=== PATIENT | female | born 1950 | race Caucasian/White ===

== ENCOUNTER 2017-03-07 15:25 | Emergency (ER) | payer MEDICARE, OTHER ==
[~2017-03-07] VITALS: Ht 149.9 cm; Wt 112.8 kg
[2017-03-07] MEDS ORDERED: BREO ELLIPTA1 INH IN (16:04)
[2017-03-07] MEDS ORDERED: ALLERGY RE50 MCG/ACT IN (16:05)
[2017-03-07] MEDS ORDERED: MOTRIN800 MG PO (16:06)
[2017-03-07] MEDS ORDERED: IPRATROPIU0.5 MG/3 M IN (16:06)
[2017-03-07] MEDS ORDERED: LISINOPRIL40 MG PO (16:07)
[2017-03-07] MEDS ORDERED: MONTELUKAST SOD10 MG PO (16:07)
[2017-03-07] MEDS ORDERED: NEXIUM40 M1 PO (16:07)
[2017-03-07] MEDS ORDERED: PRAVASTATIN SOD20 MG PO (16:08)
[2017-03-07] MEDS ORDERED: PROAIR HFA108 MCG/AC IN (16:15)
[2017-03-07] MEDS ORDERED: SPIRIVA HANDIH18 MCG IN (16:16)
[2017-03-07] MEDS ORDERED: MULTI VIT PO (16:16)
[2017-03-07] MEDS ORDERED: D31000 UNIT PO (16:17)
[2017-03-07] MEDS ORDERED: FLEXERIL PO (17:05)
[2017-03-07] MEDS ORDERED: ULTRAM50 M1 PO (17:05)
[2017-03-07 17:15] VITALS: BP 141/74
== END 2017-03-07 17:15 | disposition home or self-care (01) ==
LOC: ED 15:25
DX: S39.012A Strain of muscle, fascia and tendon of lower back, initial encounter (principal); S23.3XXA Sprain of ligaments of thoracic spine, initial encounter; M47.817 Spondylosis without myelopathy or radiculopathy, lumbosacral region; X50.3XXA Overexertion from repetitive movements, initial encounter; Y93.I9 Activity, other involving external motion; Y92.810 Car as the place of occurrence of the external cause; Y92.411 Interstate highway as the place of occurrence of the external cause

== ENCOUNTER 2017-05-23 10:30 | Emergency (ER) | payer MEDICARE, OTHER ==
[~2017-05-23] VITALS: Ht 149.9 cm; Wt 95.0 kg
[~2017-05-23 10:30] MED LIST: ALLERGY RE50 MCG/ACT IN; BREO ELLIPTA1 INH IN; D31000 UNIT PO; FLEXERIL PO; IPRATROPIU0.5 MG/3 M IN; LISINOPRIL40 MG PO; MONTELUKAST SOD10 MG PO; MOTRIN800 MG PO; MULTI VIT PO; NEXIUM40 M1 PO; PRAVASTATIN SOD20 MG PO; PROAIR HFA108 MCG/AC IN; SPIRIVA HANDIH18 MCG IN; ULTRAM50 M1 PO
[2017-05-23] MEDS ORDERED: OCEAN NASAL0.65 % (11:08)
[2017-05-23] MEDS ORDERED: AFRIN 12 HOUR0.05 % (11:08)
[2017-05-23 11:21] VITALS: BP 162/79
[2017-05-23] MEDS ORDERED: CLONIDINE0.1 MG PO (11:24)
== END 2017-05-23 11:45 | disposition home or self-care (01) ==
LOC: ED 10:30
DX: R04.0 Epistaxis (principal); I10 Essential (primary) hypertension

== ENCOUNTER → 2018-10-20 | Outpatient (REF) | payer MEDICARE, OTHER ==
[~2018-10-20] MED LIST changes: +AFRIN 12 HOUR0.05 %; +CLARITIN RDT10 MG PO; +CLONIDINE0.1 MG PO; +HYDROCHLOROT12.5 MG PO; +LOSARTAN POTASS50 MG PO; +OCEAN NASAL0.65 %; +PANTOPRAZOLE SO40 MG PO; +STIOLTO RESPIMA1 AER IN
[2018-10-20 11:01] LABS: URINE BILIRUBIN - DIPSTICK NEGATIVE (NEGATIVE); URINE BLOOD DIPSTICK NEGATIVE (NEGATIVE); URINE COLOR YELLOW; URINE GLUCOSE - DIPSTICK NEGATIVE (NEGATIVE); URINE KETONE NEGATIVE (NEGATIVE); URINE LEUK ESTERASE TRACE (NEGATIVE); URINE NITRITE - DIPSTICK NEGATIVE (Negative); URINE PROTEIN - DIPSTICK NEGATIVE (NEG-TRACE); URINE UROBILINOGEN - DIPSTICK 0.2 E.U./dL (0.2)
== END | disposition home or self-care (01) ==
LOC: LABSPEC 10:40
PROVIDERS: ATTEND Nurse Practitioner Family
DX: R30.0 Dysuria (principal)

== ENCOUNTER 2019-03-08 14:35 | Emergency (ER) | payer MEDICARE, OTHER ==
[~2019-03-08] VITALS: Ht 149.9 cm; Wt 100.0 kg
[2019-03-08] MEDS ORDERED: TRELEGY ELLIPTA1 AER PO (15:23)
[2019-03-08] MEDS ORDERED: HYDROCHLOROT12.5 M1 PO (15:24)
[2019-03-08] MEDS ORDERED: NAPROSYN500 MG PO (16:38)
[2019-03-08] MEDS ORDERED: FLEXERIL5 MG PO (16:38)
[2019-03-08 16:50] VITALS: BP 121/66
== END 2019-03-08 16:50 | disposition home or self-care (01) ==
LOC: ED 14:35
DX: M19.012 Primary osteoarthritis, left shoulder (principal); I10 Essential (primary) hypertension

== ENCOUNTER 2019-08-24 09:02 | Inpatient (IN) | payer MEDICARE, OTHER ==
[~2019-08-24] VITALS: Ht 147.3 cm; Wt 108.0 kg
[~2019-08-24 09:02] MED LIST changes: +FLEXERIL5 MG PO; +HYDROCHLOROT12.5 M1 PO; +NAPROSYN500 MG PO; +TRELEGY ELLIPTA1 AER PO
--- NOTE | 2019-08-24 09:18 | NUR ---
PT TO ROOM VIA WHEELCHAIR.
--- NOTE | 2019-08-24 10:00 | NUR ---
PT RESTING ON STRETCHER; NO S/S OF DISTRESS NOTED; O2 NC IN PLACE; VSS; WILL CONTIUNE TO MONITOR
[2019-08-24 10:09] LABS: HEMATOCRIT 41.8 % (37.0-47.0); HEMOGLOBIN 13.9 g/dl (12.0-16.0); IMMATURE GRANULOCYTES 0.6 % (0.0-5.0); MEAN CELL VOLUME 91.3 fL CALC (80.0-100.0); MEAN CORPUSCULAR HGB 30.3 pG CALC (26.0-32.0); MEAN CORPUSCULAR HGB CONC 33.3 g/L CALC (32.0-36.0); NEUT# 14.37 thou/uL (2.00-7.15); RED BLOOD COUNT 4.58 mill/uL (4.20-5.60); RED CELL DISTRI WIDTH 12.6 % (11.5-15.5)
[2019-08-24 10:28] LABS: ALBUMIN 3.9 g/dL (3.2-5.0); ANION GAP 13 (6-22 (CALC)); BILIRUBIN, TOTAL 1.8 mg/dL (0.0-1.4); BUN 15 mg/dL (8-23); BUN/CREATININE RATIO 24 (12-20 (CALC)); CARBON DIOXIDE 25 mmol/l (22-30); CHLORIDE 100 mmol/l (95-108); CREATININE 0.6 mg/dL (0.5-1.0); GFR > 60 ML/MIN (>=60 (CALC)); GFR FOR AFR.AMER. > 60 ML/MIN (>=60 (CALC)); POTASSIUM 3.9 mmol/l (3.5-5.1); SODIUM 134 mmol/l (137-146); TOTAL PROTEIN 6.8 g/dL (6.3-8.2)
[2019-08-24 10:29] LABS: ALKALINE PHOSPHATASE 152 u/l (38-126); SGOT/AST 38 u/l (9-36)
--- NOTE | 2019-08-24 11:00 | NUR ---
PT RESTING ON STRETHCER; NO S/S OF DISTRESS NOTED; PT UPDATED ON CONTINUED WAIT TIME; VSS; WILL CONTINUE TO MONITOR
--- NOTE | 2019-08-24 12:00 | NUR ---
PT ASSISTED TO BR AT THIS TIME; AM WITH STEADY GAIT NOTED; WILL CONTINUE TO MONITOR
--- NOTE | 2019-08-24 12:48 | NUR ---
PT ARRIVED TO MED/SURG ROOM 284 IN STABLE CONDITION VIA WHEELCHAIR ACCOMPANIED BY SPOUSE AND WOO HYLTON;PT AMBULATED WITH A STEADY GAIT TO STANDING SCALE AND BEDSIDE;WT AND VS OBTAINED BY FRANK BROTHERS;PT A&O X3,ORIENTED TO ROOM AND CALL LIGHT SYSTEM;PT REPORTS "FLU LIKE SYMPTOMS" STARTING Friday08/22/19 ACCOMPANIED WITH FEVERS AND COUGH;PT REPORTS HEADACHE PAIN RATING 6/10 ON THE PAIN SCALE AND REQUESTS PAIN MEDICATION,KATHERIN ESTEVEZ NOTIFIED OF REQUEST;ASSESSMENT COMPLETED;RESPIRATIONS EVEN AND UNLABORED,SHALLOW ON O2 @ 2L VIA NC;PT IS NOT HOME OXYGEN DEPENDENT;COARSE LUNG SOUNDS ACCOMPANIED BY PRODUCTIVE COUGH, SPUTUM NOT VISUALIZED AT THIS TIME;ABDOMEN DISTENDED/SOFT ON PALPATION AND ACTIVE IN ALL 4 QUADRANTS,LAST BM 08/24/19;WEAK PEDAL PULSES;SKIN INTACT;TELE MONITORING IN PLACE;#20G TO LAC FLUSHED AND PATENT,NS TO BE STARTED @ 80ML/HR PER ORDER;ALLERGY BAND APPLIED;PT DENIES ANY ADDITIONAL NEEDS AT THIS TIME;MEAL TRAY PROVIDED;ENCOURAGED TO CALL FOR ASSISTANCE IF NEEDED;FALL PRECAUTIONS IN PLACE WITH BED IN THE LOWEST POSITION AND CALL LIGHT IN REACH;WILL CONTINUE TO MONITOR
--- NOTE | 2019-08-24 12:51 | NUR ---
Admission Note Report Given to: ROSITA PLASCENCIA Transported by: X Wheelchair Stretcher Transported with: X Nurse Transporter X Patent IV X O2 X Cigar Tobacco Processing Supervisor
[2019-08-24 12:58] VITALS: BP 153/76
--- NOTE | 2019-08-24 13:35 | NUR ---
PT MEDICATED WITH PRN TYLENOL 650MG PO FOR HEADACHE PAIN RATING 6/10 ON THE PAIN SCALE,WILL MONITOR FOR EFFECTIVENESS
--- NOTE | 2019-08-24 15:06 | NUR ---
PT REPORTS THAT TYLENOL WAS UNEFFECTIVE TOWARDS HEADACHE PAIN,KATHERIN SOLOMON NOTIFIED.
[2019-08-24 16:08] VITALS: BP 155/70
--- NOTE | 2019-08-24 16:15 | NUR ---
PT RESTING IN SEMI FOWLERS POSITION WITH VISITORS AT BEDSIDE;RESPIRATIONS EVEN AND UNLABORED ON O2 @ 2L VIA NC;PT CONTINUES TO REPORT HEADCAHE PAIN,HERB,KATHERIN AT BEDSIDE;;IV FLUIDS INFUSING TO LAC WITH EASE PER ORDER;TELE MONITORING IN PLACE;PT ENCOURAGED TO CALL FOR ASSISTANCE IF NEEDED;CALL LIGHT IN REACH;WILL CONTINUE TO MONITOR
--- NOTE | 2019-08-24 17:50 | NUR ---
PT MEDICATED WITH PRN MOTRIN 600MG PO FOR HEADACHE RATING 5/10 ON THE PAIN SCALE,WILL CONTINUE TO MONITOR FOR EFFECTIVENESS
--- NOTE | 2019-08-24 18:42 | NUR ---
PT REPORTS THAT PRN MOTRIN WAS UNEFFECTIVE TOWARDS HEADACHE PAIN,JYOTI ESTEVEZRP NOTIFIED.
[2019-08-24 20:19] VITALS: BP 147/80
--- NOTE | 2019-08-24 21:30 | NUR ---
PATIENT RESTING IN BED WITH HOB ELEVATED AND O2 VIA NASAL CANNULA IN PLACE. AT BEDSIDE. PATIENT WITH TELE MONITOR IN PLACE. IV SITE TO AC INTACT WITH IVF NS PATENT ANDIFUSING AT 80CC/HR. PATIENT IS VOIDING QS YELLOW URINEIN BR. PATIENT C/O THROBBING HEADACHE. MEDICAED WITH LORTAB 5/325MG PO FOR H/A. SAFETY PREAUTIONS REINFORCED. CALL LIGHT IN REACH. WILL CONT TO MONITOR.
[2019-08-25] VITALS (8 sets, daily range): BP systolic 125–189; BP diastolic 57–86
--- NOTE | 2019-08-25 | NUR ---
PATIENT RESTING IN BED WATCHING TV-STATES THAT HE HEADACHE IS BETTER AT 2/10 ON PAIN SCALE. O2 REMAINS IN PLACE. TELE MONITOR IN PLACE. IVF NS PATENT AND INFUSING AT 80CC/HR. SITE REMAINS HEALTHY. SAFETY PRECAUTIONS REINFORCED. CALL LIGHT IN REACH. WILL CONT TO MONITOR.
--- NOTE | 2019-08-25 03:51 | NUR ---
PATIENT APPEARS SLEEPING IN BED WITH O2 VIA NASAL CANNULA IN PLACE. APPEARS SLEEPING WITH EYES CLOSED. RESP ARE EVEN AND UNLABORED. TELE MONITOR IN PLACE. IVF PATENT ANDINFUSING AT 80CC/HR VIA LAC SITE. CALL LIGHT IN REACH. WILL CON TO MONITOR.
[2019-08-25 06:01] LABS: HEMATOCRIT 38.9 % (37.0-47.0); HEMOGLOBIN 13.1 g/dl (12.0-16.0); MEAN CELL VOLUME 90.5 fL CALC (80.0-100.0); MEAN CORPUSCULAR HGB 30.5 pG CALC (26.0-32.0); MEAN CORPUSCULAR HGB CONC 33.7 g/L CALC (32.0-36.0); NEUT# 6.39 thou/uL (2.00-7.15); RED BLOOD COUNT 4.3 mill/uL (4.20-5.60); RED CELL DISTRI WIDTH 12.3 % (11.5-15.5)
[2019-08-25 06:25] LABS: ANION GAP 16 (6-22 (CALC)); BUN 16 mg/dL (8-23); BUN/CREATININE RATIO 26 (12-20 (CALC)); CHLORIDE 102 mmol/l (95-108); CREATININE 0.6 mg/dL (0.5-1.0); GFR > 60 ML/MIN (>=60 (CALC)); GFR FOR AFR.AMER. > 60 ML/MIN (>=60 (CALC)); POTASSIUM 3.9 mmol/l (3.5-5.1); SODIUM 133 mmol/l (137-146)
[2019-08-25 06:26] LABS: CARBON DIOXIDE 19 mmol/l (22-30)
--- NOTE | 2019-08-25 08:00 | NUR ---
ASSESSMENT DONE. TELE IN PLACE. PT IS A&O X3. O2 AT 2L VIA NC. IVF INFUSING WELL. PT DENIES PAIN OR NEEDS AT THIS TIME. CALL LIGHT IN REACH.
--- NOTE | 2019-08-25 12:05 | NUR ---
MEDICATED PT WITH LORTAB FOR HEADACE. MANOJ ZHOU AT BEDSIDE. PT FACE IS FLUSH/REDNESS. CHECK PT TEMP 99.1. NOTIFIED WINNIE RE: PT VS. IN ROOM. CALL LIGHT IN REACH.
--- NOTE | 2019-08-25 14:30 | NUR ---
PT CALLED STATED THAT SHE HAS SOB,HOT AND NAUSEA. PT FACE IS FLUSH/REDNESS STOP THE ZITHROMAX. VS OBTAIN. NOTIFIED WINNIE PIZARRO: PT CONCERNS AND VS.
--- NOTE | 2019-08-25 16:03 | NUR ---
PT IS RESTING IN BED. PT STATED SHE FEELS A LITTLE BIT BETTER. PT FACE STILL FLUSH. PT DENIES PAIN. IN ROOM. CALL LIGHT IN REACH.
--- NOTE | 2019-08-25 20:41 | NUR ---
PATIENT SITTING ROOM PLAYING WITH CELL PHONE. PATIENT ALERT AND ORIENTED X 4. PATIENT HAS NO COMPLAINTS. PATIENT LUNGS ARE CLEAR. PATIENT HAS OCCASSIONALLY PRODUCTIVE THICK GREENISH SPUTUM COUGH. 02 @2L N.C. PATIENT LAST BOWEL MOVEMENT WAS YESTERDAY. PATIENT EDUCATED ON USING CALLING RAMOS FOR ASSISTANCE.
[2019-08-26] VITALS (7 sets, daily range): BP systolic 136–172; BP diastolic 78–89
[2019-08-26 05:26] LABS: HEMATOCRIT 38.9 % (37.0-47.0); HEMOGLOBIN 12.7 g/dl (12.0-16.0); IMMATURE GRANULOCYTES 2.3 % (0.0-5.0); MEAN CELL VOLUME 92.4 fL CALC (80.0-100.0); MEAN CORPUSCULAR HGB 30.2 pG CALC (26.0-32.0); MEAN CORPUSCULAR HGB CONC 32.6 g/L CALC (32.0-36.0); NEUT# 7.92 thou/uL (2.00-7.15); RED BLOOD COUNT 4.21 mill/uL (4.20-5.60); RED CELL DISTRI WIDTH 12.7 % (11.5-15.5)
[2019-08-26 05:51] LABS: ANION GAP 14 (6-22 (CALC)); BUN 19 mg/dL (8-23); BUN/CREATININE RATIO 33 (12-20 (CALC)); CHLORIDE 105 mmol/l (95-108); CREATININE 0.6 mg/dL (0.5-1.0); GFR > 60 ML/MIN (>=60 (CALC)); GFR FOR AFR.AMER. > 60 ML/MIN (>=60 (CALC)); MAGNESIUM 2.2 mg/dL (1.6-2.3); SODIUM 138 mmol/l (137-146)
[2019-08-26 06:11] LABS: CARBON DIOXIDE 23 mmol/l (22-30)
--- NOTE | 2019-08-26 07:23 | NUR ---
PATIENT SLEPT THROUGHOUT SHIFT. LUNGS ARE CLEAR. PATIENT HAS NO COMPLAINTS.
--- NOTE | 2019-08-26 08:00 | NUR ---
PATIENT RESTING IN BED AT THIS TIME-AWAKE ALERT AND ORIENTEDX3 WITH [address]UL[address]. PATIENT STILL WITH PRODUCTIVE COUGH-BROWN SECREATIONS. PATIENT WITH IV SITE TO LEFT AC INTACT AND REMAINS HEALTHY.PATIENT UP TO BR-VOIDING QS YELLOW URINE. SAFETY PRECAUTIONS REINFORCED. CALL LIGHT IN REACH. WILL CONT TO MONITOR.
--- NOTE | 2019-08-26 13:45 | NUR ---
PATIENT TO CT FOR CT OF [facility] VIA WHEELCHAIR WITH VOLUNTEER IN ATTENDANCE.
--- NOTE | 2019-08-26 17:11 | NUR ---
PATIENT RESTING IN BED AT THIS TIME. SOB WITH EXHERSION. PATIENT VOIDING QS YELLOW URINE AND STATES THAT SHE DID HAVE A BM THIS AFTERNOON. SOLU-MEDROL GIVEN ORDERED VCIA LEFT AC SITE. CALL LIGHT IN REACH. WILL CONT TO MONITOR.
--- NOTE | 2019-08-26 19:25 | NUR ---
REPORT FROM JAVIER BERKOWITZ. PT SITTING UP IN BED. NO APPARENT DISTRESS NOTED. SEVERAL VISITORS IN ROOM. PT DENIES ANY CURRENT WANTS OR NEEDS. CALL LIGHT WITHIN. WILL CONTINUE TO MONITOR.
--- NOTE | 2019-08-26 23:15 | NUR ---
PT RESTING IN BED WITH EYES CLOSED. NO APPARENT DISTRESS NOTED. CALL LIGHT WITHIN REACH. WILL CONTINUE TO MONITOR.
--- NOTE | 2019-08-27 03:21 | NUR ---
FRESH ICE WATER AND FAN PROVIDED UPON REQUEST. PT DENIES ANY PAIN OR DISCOMFORT. NO APPARENT DISTRESS NOTED. CALL LIGHT WITHIN REACH. WILL CONTINUE TO MONITOR.
[2019-08-27 03:30] VITALS: BP 166/82
[2019-08-27 07:18] VITALS: BP 145/78
--- NOTE | 2019-08-27 07:21 | NUR ---
PT RESTING QUIETLY IN BED. NO RESP. DISTRESS NOTED. ASSESSMENT COMPLETED. NO COMPLAINTS VOICED. WILL CONTINUE TO MONITOR CONDITION. CALL LIGHT WITHIN REACH.
--- NOTE | 2019-08-27 11:06 | NUR ---
VISITORS AT BEDSIDE VISITING. PT TENDS TO COUGH AFTER TAKING FOR A PERIOD OF TIME. SLIGHT DISTRESS AFTER THE COUGH, HOWEVER ABLE TO CATCH BREATHE. WILL CONTINUE TO MONITOR. CALL LIGHT REMAINS WITHIN REACH.
--- NOTE | 2019-08-27 12:00 | NUR ---
PT CONTINUES TO REST QUIETLY IN BED. NO RESP. DISTRESS NOTED. NO CHANGE IN ASSESSMENT. WILL CONTINUE TO MONITOR CONDITION. CALL LIGHT WITHIN REACH.
[2019-08-27 12:07] VITALS: BP 178/74
[2019-08-27 16:00] VITALS: BP 158/71
--- NOTE | 2019-08-27 16:17 | NUR ---
PT CONTINUES TO REST QUIETLY. NO RESP. DISTRESS NOTED. NO COMPLAINTS VOICED. NO CHANGE IN ASSESSMENT. CALL LIGHT WITHIN REACH.
[2019-08-27 18:45] VITALS: BP 158/84
--- NOTE | 2019-08-27 20:31 | NUR ---
REPORT FROM HUE BECKER. PT SITTING UP IN BED. NO APPARENT DISTRESS NOTED. VISITORS PRESENT IN ROOM. PT DENIES ANY CURRENT WANTS OR NEEDS. CALL LIGHT WITHIN. WILL CONTINUE TO MONITOR.
[2019-08-27 23:52] VITALS: BP 152/82
--- NOTE | 2019-08-28 00:01 | NUR ---
PT SITTING UP IN BED. NO APPARENT DISTRESS NOTED. FRESH ICE WATER PROVIDED AT THIS TIME. DENIES ANY OTHER WANTS OR NEEDS. CALL LIGHT WITHIN REACH. WILL CONTINUE TO MONITOR.
--- NOTE | 2019-08-28 03:45 | NUR ---
PT RESTING IN BED WITH EYES CLOSED. NO APPARENT DISTRESS NOTED. CALL LIGHT WITHIN REACH. WILL CONTINUE TO MONITOR.
[2019-08-28 04:38] VITALS: BP 144/82
[2019-08-28 08:20] VITALS: BP 159/74
--- NOTE | 2019-08-28 08:20 | NUR ---
ASSESSMENT IS COMPLTED: IV SITE IS FREE FROM REDNESS OR EDEMA. HR IS REG,PULSES ARE STRONG X4, ABD IS SOFT WITH ACTIV EBS . BREATH SOUNDS ARE COARSE. O2 @ 2LITERS WITH NC. CONTINUE TO OBSERVE AND MONITOR.
--- NOTE | 2019-08-28 11:50 | NUR ---
CHANGED IV SITE TO THE LH WITH #22 1 STICK.REMOVED THE LAC # 20 DUE TO BEEPING AND TIME TO CHANGE, CATHTER INTACT.
--- NOTE | 2019-08-28 12:30 | NUR ---
PT IS VISITING WITH SPOUSE. NO DISTRESS NOTED. IV SITE IS FREE FROM REDNESS OR EDEMA.
[2019-08-28 15:09] VITALS: BP 153/66
--- NOTE | 2019-08-28 16:20 | NUR ---
PT IS RELAXING IN BED WITH NO DISTRESS NOTED IV SITE IS FREE FROM REDNESS OR EDMEA.
[2019-08-28 19:24] VITALS: BP 169/81
[2019-08-28 23:30] VITALS: BP 157/94
--- NOTE | 2019-08-28 23:30 | NUR ---
PATIENT RESTING IN BED-MEDICATED WITH SCHEDULED SOLU-MEDROL IA LEFT HANDIV SITE. DECLINES COUGH MED AT THIS ITME. CALL LIGHT IN REACH. WILL CONT TO MONITOR.
--- NOTE | 2019-08-29 01:11 | NUR ---
PATIENT SITTING UP IN BED WITH AT BEDSIDE WATCHING TV. AWAKE ALERT AND ORIENTEDX3. O2 VIA NASAL CANNULA AT 2LPM IN PLACE. STILL WITH CROUPY COUCH. STILL WITH COARSE LUNG SOUNDS. IV SITE TO LEFT HAND INTACT AND IS HEALTHY AT THIS TIME. UP TO BR TO VOID QS YELLOW URINE. CALL LIGHT IN REACH. WILL CONT TO MONITOR.
--- NOTE | 2019-08-29 04:00 | NUR ---
PATIENT RESTING IN BED WITH O2 VIA NASAL CANNULA IN PLACE. EYES CLOSED, RESP EVEN AND NON-LABORED AT THIS TIME. CALL LIGHT IN REACH. WILL CONT TO MONITOR.
[2019-08-29 04:30] VITALS: BP 155/83
[2019-08-29 08:30] VITALS: BP 162/77
--- NOTE | 2019-08-29 08:30 | NUR ---
ASSESSMENT IS COMPLTED: IV SITE IS FREE FROM REDNESS OR EDEMA. HR IS REG,PULSES ARE STRONG X4, ABD IS SOFT WITH ACTIVE BS. BREATH SOUNDS ARE CLEAR AND COARSE. O2 @ 2LITERS WITH NC.
--- NOTE | 2019-08-29 12:20 | NUR ---
PT IS RELAXING IN BED AND VISITING WITH FAMILY. IV SITE IS FREE FROM REDNESS OR EDEMA.CONTINUE TO OBSERVE AND MONITOR.
--- NOTE | 2019-08-29 16:15 | NUR ---
PT IS RELAXING IN BED WITH NO DISTRESS NOTED. IV SITE IS FREE FROM REDNESS OR EDEMA.
[2019-08-29 17:00] VITALS: BP 163/75
[2019-08-29 19:09] VITALS: BP 147/79
--- NOTE | 2019-08-29 20:00 | NUR ---
PATIENT RESTING IN BED WITH HOB ELEVATED WATCHING TV WITH HER -O2 VIA NASAL CANNULA IN PLACE AT 2LPM. PATIENT IS STILL SOB WITH EXHERSION. UP TO BR TO VOID YELLOW URINE. STEADY ON HER FEET. PATIENT STATES THAT SHE DID HAVE BM TODAY. LUNGS ARE DIMINISHED BUT CLEAR. SAFETY PRECAUTIONS REINFORCED. CALL LIGHT IN REACH. WILL CONT TO MONITOR.
--- NOTE | 2019-08-30 00:58 | NUR ---
PATIENT APPEARS SLEEPING WITH HOB ELEVATED AND O2 VIA NASAL CANNULA IN PLACE. EYES ARE CLOSE AND RESP ARE EVEN AND UNLABORED. CALL LIGHT IN REACH. MICHI CONT TO MONITOR.
[2019-08-30 04:54] VITALS: BP 158/85
[2019-08-30 08:20] VITALS: BP 161/87
--- NOTE | 2019-08-30 08:20 | NUR ---
ASSESSMENT IS COMPLETED: IV SITE IS FREE FROM REDNESS OR EDMEA. HR IS REG. PULSES ARE STRONG X4, ABD IS SOFT WITH ACTIVE BS. BREATH SOUNDS ARE CLEAR AND DIMINISHED
--- NOTE | 2019-08-30 12:30 | NUR ---
PT IS RELAXING IN BED WITH NO DISTRESS NOTE. IV SITE IS FREE FROM REDNESS OR EDEMA. NOT MUCH COUGHING TODAY. FAMILY IN THE ROOM.
[2019-08-30 14:55] VITALS: BP 169/83
--- NOTE | 2019-08-30 16:30 | NUR ---
PT REMAINS RESTING AND VISITING WITH FAMILY AND FRIENDS. IV SITE IS FREE FROM REDNESS OR EDEMA. CONTINUE TO OBSERVE AND MONITOR.
[2019-08-30 18:55] VITALS: BP 155/88
--- NOTE | 2019-08-30 20:00 | NUR ---
PATIENT JUST FINISHED SHOWER-SOB WITH ANY EXHERTION. O2 VUA NASAL CANNULA REAPPLIED. PATIENT IS ALERT AND ORIENTEDX3. DRY COUPY COUGH NOTED. LUNGS ARE DIMINISHED BUT CLEAR. SALINE LOCK TO EFT HAND INTACT. VISITING AT BEDSIDE. PATIENT WITH NO COMPLAINTS AT THIS TIME. CALL LIGHT IN REACH. WILL CONT TO MONITOR.
--- NOTE | 2019-08-31 00:28 | NUR ---
PATIENT APPEARS SLEEPING WITH O2 VIA NASAL CANNULA IN PLACE AND HOB ELEVATED. CALL LIGHT IN REACH. WILL CONT TO MONITOR.
--- NOTE | 2019-08-31 04:00 | NUR ---
PATIENT RESTING IN BED-EASY TO AROUSE. AWAKE ALERT AND ORIENTEDX3. PATIENT UP TO BR TO VOID YELLOW URINE AND THEN BACK TO BED-SOB WITH MIN OR NO EXHERTION. O2 VIA NASAL CANNULA REPLACED. IV SITE TO LEFT HAND IS RED, SWOLLEN AND PAINFUL. IV SITE WAS D/C'ED. NEW IV SITE TO LEFT FOREARM STARTED-#22 GAUGE WITH GOOD BLOOD RETURN. SAFETY PREAUTIONS REINFORCED. CALLL LIGHT IN REACH. WILL CONT TO MONITOR.
[2019-08-31 05:00] VITALS: BP 169/88
[2019-08-31 08:00] VITALS: BP 154/87
--- NOTE | 2019-08-31 13:29 | NUR ---
PT AWAKE, ALERT, RESTS IN THE BED USING HER PHONE. LUNGS CLEAR, DIMINISHED, 2 LPM NC. PT SEEN BY DR GAUTHIER TODAY, HOPEFUL FOR DISCHARGE HOME TOMORROW.
[2019-08-31 15:15] VITALS: BP 149/80
--- NOTE | 2019-08-31 18:15 | NUR ---
PT PROVIDED TYLENOL FOR SCRATCHY THROAT. PT HOPEFUL FOR DISCHARGE TOMORROW.
[2019-08-31 19:00] VITALS: BP 165/86
--- NOTE | 2019-08-31 20:00 | NUR ---
PATIENT SITTING UP IN THE BED WITH O2 VIA NASAL CANNULA AT 2LPM. AWAKE ALERT AND ORIENTEDX3. STILL SOB WITH EXHERSION. SALINE LOCK TO LEFT FOREARM INTACT AND IS HEALTHY AT THIS ITME. NO COMPLAINTS AT THIS TIME. YAMIL LIGHT IN REACH. WILL CONT TO MONITOR.
[2019-09-01 01:33] VITALS: BP 154/89
--- NOTE | 2019-09-01 01:33 | NUR ---
PATIENT RESTING IN BED WITH HOB ELEVATED AND O2 VIA NASAL CANNULA IN PLACE. CALL LIGHT IN REACH. WILL CONT TO MONITOR.
[2019-09-01 04:00] VITALS: BP 153/90
--- NOTE | 2019-09-01 05:07 | NUR ---
APPEARS SLEEPING AT THIS TIME WITH EYES CLOSED AND O2 VIA NASAL CANNULA IN PLACE. RESP ARE EVEN AND UNABORED. CALL LIGHT IN REACH. WILL CONT TO MONITOR.
[2019-09-01 08:45] VITALS: BP 150/66
--- NOTE | 2019-09-01 08:45 | NUR ---
PT ASSESSMENT ISC OMPLETED: IV SITE IS FREE FROM REDNESS OR EDEMA. HR IS REG,PULSES ARE STRONG X4, ABD IS SOFT WITH ACTIVE BS. BREATH SOUNDS ARE CLEAR, AND DIMINISHED. O2 @ 2;LITERS WITH NC. CONTINUE TO OSBERVE AND MONITOR.
[2019-09-01 09:49] VITALS: BP 150/66
--- NOTE | 2019-09-01 10:15 | NUR ---
IV SITE BECAME ITCHY WHILE RECIVING LEVAQUIN. SITE WAS CHANGED PM. INFORMED PROSPER KATE. WILL CHANGE TO PO ANTIBIOTICS
[2019-09-01] MEDS ORDERED: LEVAQUIN750 MG PO (11:12)
[2019-09-01] MEDS ORDERED: PREDNISONE10 MG PO (11:12)
--- NOTE | 2019-09-01 12:00 | NUR ---
IV SITE BECAME RED AND ITCHY WHILE LEVAQUIN WAS INFUSING. NO REACTION PRIOR TO THIS DOSE. INFORMED PROSPER KATE. CHANGED TO PO LEVAQUIN. WAITING ON DC INSTRUCTIONS.
--- NOTE | 2019-09-01 14:30 | NUR ---
IV SITE DISCONITNUED CATHETER WAS INTACT. DISCHARGE INSTRUCTIONS GIVEN AND VERBALIZED UNDERSTANDING. FAMILY IN THE ROOM. Discharge instructions given. Patient verbalizes understanding of same. Discharged in stable condition via Wheelchair to Home with family. All belongings sent with pt.
== END 2019-09-01 13:22 | disposition home or self-care (01) | DRG 193 ==
LOC: ED 09:02 → ED-I 11:22 → ED 11:29 → MS2 11:30
PROVIDERS: Nurse Practitioner Family; ADMIT Internal Medicine; ATTEND Internal Medicine
DX: J18.9 Pneumonia, unspecified organism (principal); J96.01 Acute respiratory failure with hypoxia; J96.21 Acute and chronic respiratory failure with hypoxia; J43.9 Emphysema, unspecified; I10 Essential (primary) hypertension; E78.5 Hyperlipidemia, unspecified; M19.90 Unspecified osteoarthritis, unspecified site; K21.9 Gastro-esophageal reflux disease without esophagitis; Z80.1 Family history of malignant neoplasm of trachea, bronchus and lung; Z88.0 Allergy status to penicillin; Z99.81 Dependence on supplemental oxygen
CPT/HCPCS: G0378; J1956; Q9967

== ENCOUNTER 2020-07-05 10:11 | Emergency (ER) | payer MEDICARE, OTHER ==
[~2020-07-05] VITALS: Ht 147.3 cm; Wt 120.0 kg
[~2020-07-05 10:11] MED LIST changes: +LEVAQUIN750 MG PO; +PREDNISONE10 MG PO
[2020-07-05] MEDS ORDERED: DOXYCYC MONO100 M2 PO (12:49)
[2020-07-05 13:16] VITALS: BP 160/84
--- NOTE | 2020-07-07 09:50 | NUR ---
Notified patient of positive Covid results. Patient states she "feels lousy" and appears SOB while talking on telephone. Patient c/o difficulty breathing. Advised patient to return to ED for further evaluation. Patient states she will come back to ED. Notified WOO Ramon director of ED.
== END 2020-07-05 13:12 | disposition home or self-care (01) ==
LOC: EDBD 10:11 → ED 10:11
DX: U07.1 COVID-19 (principal); I10 Essential (primary) hypertension; J44.9 Chronic obstructive pulmonary disease, unspecified; F17.200 Nicotine dependence, unspecified, uncomplicated

== ENCOUNTER 2020-07-07 09:54 | Inpatient (IN) | payer MEDICARE, OTHER ==
[~2020-07-07] VITALS: Ht 147.3 cm; Wt 112.6 kg
[~2020-07-07 09:54] MED LIST changes: +DOXYCYC MONO100 M2 PO
[2020-07-07 11:07] LABS: IMMATURE GRANULOCYTES 0.4 % (0.0-5.0); MEAN CELL VOLUME 90.3 fL CALC (80.0-100.0); MEAN CORPUSCULAR HGB 30.1 pG CALC (26.0-32.0); MEAN CORPUSCULAR HGB CONC 33.3 g/dL CAL (32.0-36.0); NEUT# 6.79 thou/uL (2.00-7.15); RED BLOOD COUNT 4.65 mill/uL (4.20-5.60); RED CELL DISTRI WIDTH 12.5 % (11.5-15.5)
[2020-07-07 11:32] LABS: ALBUMIN 4.1 g/dL (3.2-5.0); ANION GAP 13 (6-22 (CALC)); BUN 13 mg/dL (8-23); BUN/CREATININE RATIO 22 (12-20 (CALC)); CARBON DIOXIDE 26 mmol/l (22-30); CHLORIDE 95 mmol/l (95-108); CREATININE 0.6 mg/dL (0.5-1.0); GFR > 60 ML/MIN (>=60 (CALC)); GFR FOR AFR.AMER. > 60 ML/MIN (>=60 (CALC)); LIPASE 22 u/l (23-300); POTASSIUM 4.2 mmol/l (3.5-5.1); SODIUM 130 mmol/l (137-146); TOTAL PROTEIN 7.5 g/dL (6.3-8.2)
[2020-07-07 11:38] LABS: D-DIMER 0.33 mg/L (0.19-0.60)
[2020-07-07 11:42] LABS: ALKALINE PHOSPHATASE 205 u/l (38-126); BILIRUBIN, TOTAL 1.7 mg/dL (0.0-1.4); C-REACTIVE PROTEIN 15.5 mg/dL (0-0.9); SGOT/AST 52 u/l (9-36)
[2020-07-07 16:00] VITALS: BP 148/73; BP 180/80
[2020-07-07 16:43] LABS: URINE BILIRUBIN - DIPSTICK NEGATIVE (NEGATIVE); URINE BLOOD DIPSTICK NEGATIVE (NEGATIVE); URINE COLOR YELLOW; URINE GLUCOSE - DIPSTICK NEGATIVE (NEGATIVE); URINE KETONE NEGATIVE (NEGATIVE); URINE LEUK ESTERASE NEGATIVE (NEGATIVE); URINE NITRITE - DIPSTICK NEGATIVE (Negative); URINE PROTEIN - DIPSTICK NEGATIVE (NEG-TRACE); URINE SPECIFIC GRAVITY <=1.005; URINE UROBILINOGEN - DIPSTICK 0.2 E.U./dL (0.2)
[2020-07-07 17:00] VITALS: BP 148/73
[2020-07-07 19:30] VITALS: BP 140/94
[2020-07-08 00:35] VITALS: BP 141/66
[2020-07-08 05:00] VITALS: BP 148/75
[2020-07-08 08:41] VITALS: BP 140/92
[2020-07-08 11:05] VITALS: BP 158/95
[2020-07-08 15:33] VITALS: BP 127/67
[2020-07-08 21:55] VITALS: BP 146/76
[2020-07-09 00:20] VITALS: BP 144/61
[2020-07-09 04:20] VITALS: BP 131/92
[2020-07-09 06:10] LABS: HEMATOCRIT 39.5 % (37.0-47.0); HEMOGLOBIN 12.9 g/dl (12.0-16.0); IMMATURE GRANULOCYTES 0.7 % (0.0-5.0); MEAN CELL VOLUME 90.6 fL CALC (80.0-100.0); MEAN CORPUSCULAR HGB 29.6 pG CALC (26.0-32.0); MEAN CORPUSCULAR HGB CONC 32.7 g/dL CAL (32.0-36.0); NEUT# 10.35 thou/uL (2.00-7.15); RED BLOOD COUNT 4.36 mill/uL (4.20-5.60); RED CELL DISTRI WIDTH 12.6 % (11.5-15.5)
[2020-07-09 06:34] LABS: ALBUMIN 3.6 g/dL (3.2-5.0); ALKALINE PHOSPHATASE 211 u/l (38-126); ANION GAP 12 (6-22 (CALC)); BUN 19 mg/dL (8-23); BUN/CREATININE RATIO 26 (12-20 (CALC)); C-REACTIVE PROTEIN 8.5 mg/dL (0-0.9); CARBON DIOXIDE 24 mmol/l (22-30); CHLORIDE 101 mmol/l (95-108); CREATININE 0.7 mg/dL (0.5-1.0); GFR > 60 ML/MIN (>=60 (CALC)); GFR FOR AFR.AMER. > 60 ML/MIN (>=60 (CALC)); POTASSIUM 4.3 mmol/l (3.5-5.1); SGOT/AST 49 u/l (9-36); SODIUM 132 mmol/l (137-146); TOTAL PROTEIN 6.3 g/dL (6.3-8.2)
[2020-07-09 06:37] LABS: BILIRUBIN, TOTAL 0.6 mg/dL (0.0-1.4)
[2020-07-09 08:00] VITALS: BP 145/76
[2020-07-09 15:35] VITALS: BP 141/60
[2020-07-09 20:00] VITALS: BP 170/69
[2020-07-10] VITALS: BP 118/69
[2020-07-10 04:00] VITALS: BP 151/91
[2020-07-10 07:55] VITALS: BP 149/85
[2020-07-10 10:30] VITALS: BP 144/73
[2020-07-10 15:00] VITALS: BP 142/81
[2020-07-10 20:00] VITALS: BP 142/76
[2020-07-11 04:00] VITALS: BP 159/78
[2020-07-11 05:48] LABS: ALBUMIN 3.6 g/dL (3.2-5.0); ALKALINE PHOSPHATASE 218 u/l (38-126); ANION GAP 14 (6-22 (CALC)); BILIRUBIN, TOTAL 0.7 mg/dL (0.0-1.4); BUN 17 mg/dL (8-23); BUN/CREATININE RATIO 23 (12-20 (CALC)); C-REACTIVE PROTEIN 6.5 mg/dL (0-0.9); CARBON DIOXIDE 27 mmol/l (22-30); CHLORIDE 100 mmol/l (95-108); CREATININE 0.7 mg/dL (0.5-1.0); GFR > 60 ML/MIN (>=60 (CALC)); GFR FOR AFR.AMER. > 60 ML/MIN (>=60 (CALC)); POTASSIUM 4.7 mmol/l (3.5-5.1); SGOT/AST 38 u/l (9-36); SODIUM 136 mmol/l (137-146); TOTAL PROTEIN 6.6 g/dL (6.3-8.2)
[2020-07-11 05:57] LABS: HEMATOCRIT 42.4 % (37.0-47.0); HEMOGLOBIN 13.9 g/dl (12.0-16.0); IMMATURE GRANULOCYTES 5.8 % (0.0-5.0); MEAN CELL VOLUME 91.6 fL CALC (80.0-100.0); MEAN CORPUSCULAR HGB CONC 32.8 g/dL CAL (32.0-36.0); NEUT# 5.03 thou/uL (2.00-7.15); RED BLOOD COUNT 4.63 mill/uL (4.20-5.60); RED CELL DISTRI WIDTH 12.9 % (11.5-15.5)
[2020-07-11 09:28] VITALS: BP 145/88
[2020-07-11 15:37] VITALS: BP 136/92
[2020-07-11 19:00] VITALS: BP 120/81
[2020-07-12 04:00] VITALS: BP 158/57
[2020-07-12 07:20] VITALS: BP 160/80
[2020-07-12 15:00] VITALS: BP 142/60
[2020-07-12 19:30] VITALS: BP 151/68
[2020-07-13 04:00] VITALS: BP 169/80
[2020-07-13 05:30] VITALS: BP 144/78
[2020-07-13 05:51] LABS: HEMATOCRIT 43.5 % (37.0-47.0); HEMOGLOBIN 14.1 g/dl (12.0-16.0); MEAN CELL VOLUME 91.4 fL CALC (80.0-100.0); MEAN CORPUSCULAR HGB 29.6 pG CALC (26.0-32.0); MEAN CORPUSCULAR HGB CONC 32.4 g/dL CAL (32.0-36.0); NEUT# 6.89 thou/uL (2.00-7.15); RED BLOOD COUNT 4.76 mill/uL (4.20-5.60); RED CELL DISTRI WIDTH 12.5 % (11.5-15.5)
[2020-07-13 06:16] LABS: ALBUMIN 3.9 g/dL (3.2-5.0); ALKALINE PHOSPHATASE 171 u/l (38-126); ANION GAP 13 (6-22 (CALC)); BILIRUBIN, TOTAL 0.8 mg/dL (0.0-1.4); BUN 22 mg/dL (8-23); BUN/CREATININE RATIO 30 (12-20 (CALC)); CARBON DIOXIDE 32 mmol/l (22-30); CHLORIDE 95 mmol/l (95-108); CREATININE 0.7 mg/dL (0.5-1.0); GFR > 60 ML/MIN (>=60 (CALC)); GFR FOR AFR.AMER. > 60 ML/MIN (>=60 (CALC)); POTASSIUM 4.7 mmol/l (3.5-5.1); SGOT/AST 24 u/l (9-36); SODIUM 135 mmol/l (137-146); TOTAL PROTEIN 6.8 g/dL (6.3-8.2)
[2020-07-13 06:57] LABS: IMMATURE GRANULOCYTES 7.4 % (0.0-5.0)
[2020-07-13 08:00] VITALS: BP 133/69
[2020-07-13 15:15] VITALS: BP 114/68
[2020-07-13 19:35] VITALS: BP 142/66
[2020-07-14 04:05] VITALS: BP 153/67
[2020-07-14 08:17] VITALS: BP 140/78
[2020-07-14 15:30] VITALS: BP 137/71
[2020-07-14 19:40] VITALS: BP 145/58
[2020-07-15 04:00] VITALS: BP 147/79
[2020-07-15 04:51] LABS: HEMATOCRIT 44.1 % (37.0-47.0); HEMOGLOBIN 14.2 g/dl (12.0-16.0); MEAN CELL VOLUME 92.3 fL CALC (80.0-100.0); MEAN CORPUSCULAR HGB 29.7 pG CALC (26.0-32.0); MEAN CORPUSCULAR HGB CONC 32.2 g/dL CAL (32.0-36.0); NEUT# 8.56 thou/uL (2.00-7.15); RED BLOOD COUNT 4.78 mill/uL (4.20-5.60); RED CELL DISTRI WIDTH 12.7 % (11.5-15.5)
[2020-07-15 05:23] LABS: ALBUMIN 3.7 g/dL (3.2-5.0); ALKALINE PHOSPHATASE 136 u/l (38-126); ANION GAP 11 (6-22 (CALC)); BILIRUBIN, TOTAL 0.8 mg/dL (0.0-1.4); BUN 24 mg/dL (8-23); BUN/CREATININE RATIO 31 (12-20 (CALC)); C-REACTIVE PROTEIN 0.9 mg/dL (0-0.9); CARBON DIOXIDE 33 mmol/l (22-30); CHLORIDE 95 mmol/l (95-108); CREATININE 0.8 mg/dL (0.5-1.0); GFR > 60 ML/MIN (>=60 (CALC)); GFR FOR AFR.AMER. > 60 ML/MIN (>=60 (CALC)); POTASSIUM 4.8 mmol/l (3.5-5.1); SGOT/AST 19 u/l (9-36); SODIUM 134 mmol/l (137-146); TOTAL PROTEIN 6.4 g/dL (6.3-8.2)
[2020-07-15 05:31] LABS: IMMATURE GRANULOCYTES 7.8 % (0.0-5.0)
[2020-07-15 07:30] VITALS: BP 141/80
[2020-07-15 16:15] VITALS: BP 149/72
[2020-07-15 20:00] VITALS: BP 128/91
[2020-07-16 05:05] VITALS: BP 130/60
[2020-07-16 08:09] VITALS: BP 135/95
[2020-07-16 08:31] VITALS: BP 119/63
[2020-07-16 15:00] VITALS: BP 132/98
[2020-07-16 19:55] VITALS: BP 156/70
[2020-07-17 04:30] VITALS: BP 142/76
[2020-07-17 04:57] LABS: HEMATOCRIT 41.7 % (37.0-47.0); HEMOGLOBIN 13.6 g/dl (12.0-16.0); IMMATURE GRANULOCYTES 5.7 % (0.0-5.0); MEAN CORPUSCULAR HGB 29.7 pG CALC (26.0-32.0); MEAN CORPUSCULAR HGB CONC 32.6 g/dL CAL (32.0-36.0); NEUT# 10.08 thou/uL (2.00-7.15); RED BLOOD COUNT 4.58 mill/uL (4.20-5.60); RED CELL DISTRI WIDTH 12.7 % (11.5-15.5)
[2020-07-17 05:16] LABS: ALBUMIN 3.4 g/dL (3.2-5.0); ALKALINE PHOSPHATASE 126 u/l (38-126); ANION GAP 10 (6-22 (CALC)); BILIRUBIN, TOTAL 0.7 mg/dL (0.0-1.4); BUN 28 mg/dL (8-23); BUN/CREATININE RATIO 40 (12-20 (CALC)); C-REACTIVE PROTEIN < 0.5 mg/dL (0-0.9); CARBON DIOXIDE 28 mmol/l (22-30); CHLORIDE 97 mmol/l (95-108); CREATININE 0.7 mg/dL (0.5-1.0); GFR > 60 ML/MIN (>=60 (CALC)); GFR FOR AFR.AMER. > 60 ML/MIN (>=60 (CALC)); POTASSIUM 4.6 mmol/l (3.5-5.1); SGOT/AST 17 u/l (9-36); SODIUM 131 mmol/l (137-146); TOTAL PROTEIN 5.8 g/dL (6.3-8.2)
[2020-07-17 07:47] VITALS: BP 103/63
[2020-07-17 08:37] VITALS: BP 131/74
[2020-07-17 15:00] VITALS: BP 119/63
[2020-07-17 19:00] VITALS: BP 120/67
[2020-07-18 04:00] VITALS: BP 125/75
[2020-07-18 09:12] VITALS: BP 133/65
[2020-07-18 09:19] VITALS: BP 133/65
[2020-07-18] MEDS ORDERED: POM IN (13:25)
[2020-07-18] MEDS ORDERED: MAPAP325 MG PO (13:25)
[2020-07-18] MEDS ORDERED: OXY1 (13:29)
== END 2020-07-18 15:10 | DRG 177 ==
LOC: ED 09:54 → ED-I 12:46 → ED 13:14 → MS2 13:15
PROVIDERS: Nurse Practitioner Family; ADMIT Internal Medicine; ATTEND Internal Medicine
PROC: XW033E5 Introduction of Remdesivir Anti-infective into Peripheral Vein, Percutaneous Approach, New Technology Group 5 (ICD-10-PCS; principal; 2020-07-09)
DX: U07.1 COVID-19 (principal); J12.89 Other viral pneumonia; J96.21 Acute and chronic respiratory failure with hypoxia; J43.9 Emphysema, unspecified; I10 Essential (primary) hypertension; E78.5 Hyperlipidemia, unspecified; K21.9 Gastro-esophageal reflux disease without esophagitis; Z68.41 Body mass index [BMI] 40.0-44.9, adult; E66.01 Morbid (severe) obesity due to excess calories; M19.90 Unspecified osteoarthritis, unspecified site; F17.210 Nicotine dependence, cigarettes, uncomplicated; Z79.899 Other long term (current) drug therapy; Z88.0 Allergy status to penicillin; Z85.828 Personal history of other malignant neoplasm of skin
CPT/HCPCS: J1100; J1650; Q9967

== ENCOUNTER 2020-07-29 15:32 | Emergency (ER) | payer MEDICARE, OTHER ==
[~2020-07-29] VITALS: Ht 147.3 cm; Wt 50.0 kg
[~2020-07-29 15:32] MED LIST changes: +MAPAP325 MG PO; +OXY1; +POM IN
[2020-07-29 15:59] LABS: HEMATOCRIT 39.8 % (37.0-47.0); HEMOGLOBIN 12.8 g/dl (12.0-16.0); IMMATURE GRANULOCYTES 0.2 % (0.0-5.0); MEAN CORPUSCULAR HGB 29.9 pG CALC (26.0-32.0); MEAN CORPUSCULAR HGB CONC 32.2 g/dL CAL (32.0-36.0); NEUT# 3.24 thou/uL (2.00-7.15); RED BLOOD COUNT 4.28 mill/uL (4.20-5.60); RED CELL DISTRI WIDTH 13.2 % (11.5-15.5)
[2020-07-29 16:29] LABS: MYOGLOBIN 21 ng/mL (0 - 62)
[2020-07-29 17:27] LABS: ALBUMIN 3.8 g/dL (3.2-5.0); ALKALINE PHOSPHATASE 89 u/l (38-126); BILIRUBIN, TOTAL 0.9 mg/dL (0.0-1.4); BUN 16 mg/dL (8-23); BUN/CREATININE RATIO 23 (12-20 (CALC)); CARBON DIOXIDE 27 mmol/l (22-30); CHLORIDE 102 mmol/l (95-108); CREATININE 0.7 mg/dL (0.5-1.0); GFR > 60 ML/MIN (>=60 (CALC)); GFR FOR AFR.AMER. > 60 ML/MIN (>=60 (CALC)); POTASSIUM 4.5 mmol/l (3.5-5.1); SGOT/AST 19 u/l (9-36); TOTAL PROTEIN 6.4 g/dL (6.3-8.2)
[2020-07-29 17:29] LABS: ANION GAP 14 (6-22 (CALC)); SODIUM 138 mmol/l (137-146)
[2020-07-29] MEDS ORDERED: ZITHROMAX TRI-500 MG PO (19:37)
[2020-07-29 20:17] VITALS: BP 162/73
== END 2020-07-29 20:30 | disposition home or self-care (01) ==
LOC: ED 15:32
PROVIDERS: Emergency Medicine
DX: J44.1 Chronic obstructive pulmonary disease with (acute) exacerbation (principal); I10 Essential (primary) hypertension; E66.01 Morbid (severe) obesity due to excess calories; Z86.19 Personal history of other infectious and parasitic diseases; Z87.01 Personal history of pneumonia (recurrent); Z20.828 Contact with and (suspected) exposure to other viral communicable diseases
CPT/HCPCS: Q9967

== ENCOUNTER 2021-09-30 12:37 | Inpatient (IN) | payer MEDICARE, OTHER ==
[~2021-09-30] VITALS: Ht 147.3 cm; Wt 79.0 kg
[~2021-09-30 12:37] MED LIST changes: +ZITHROMAX TRI-500 MG PO
[2021-09-30 13:24] LABS: HEMOGLOBIN 12.9 g/dl (12.0-16.0); IMMATURE GRANULOCYTES 0.6 % (0.0-5.0); MEAN CELL VOLUME 95.2 fL CALC (80.0-100.0); MEAN CORPUSCULAR HGB 30.7 pG CALC (26.0-32.0); MEAN CORPUSCULAR HGB CONC 32.3 g/dL CAL (32.0-36.0); RED BLOOD COUNT 4.2 mill/uL (4.20-5.60); RED CELL DISTRI WIDTH 13.5 % (11.5-15.5)
[2021-09-30 13:50] LABS: ANION GAP 12 (6-22 (CALC)); BILIRUBIN, TOTAL 0.8 mg/dL (0.0-1.4); BUN 15 mg/dL (8-23); BUN/CREATININE RATIO 23 (12-20 (CALC)); CARBON DIOXIDE 24 mmol/l (22-30); CHLORIDE 101 mmol/l (95-108); CREATININE 0.7 mg/dL (0.5-1.0); GFR > 60 ML/MIN (>=60 (CALC)); GFR FOR AFR.AMER. > 60 ML/MIN (>=60 (CALC)); LIPASE 78 u/l (23-300); POTASSIUM 3.6 mmol/l (3.5-5.1); SODIUM 134 mmol/l (137-146); TOTAL PROTEIN 6.9 g/dL (6.3-8.2)
[2021-09-30 13:51] LABS: ACT PARTIAL THROMBO TIME 25.2 SECONDS (20.0-32.5); INTERNATIONAL NORMALIZED RATIO 1.1 RATIO (0.7-1.3); PROTHROMBIN TIME 11.8 SECONDS (9.0-12.5)
[2021-09-30 13:56] LABS: ALBUMIN 3.2 g/dL (3.2-5.0); ALKALINE PHOSPHATASE 195 u/l (38-126); SGOT/AST 46 u/l (9-36)
[2021-09-30] MEDS ORDERED: CA CIT/VIT1 PO (15:13)
[2021-09-30] MEDS ORDERED: IRON325 M1 (15:14)
[2021-09-30] MEDS ORDERED: BARIATRIC MULTI1 CAP (15:14)
[2021-09-30] MEDS ORDERED: FLAXSEED OIL1000 MG PO (15:14)
--- NOTE | 2021-09-30 16:16 | NUR ---
REPORT RECIEVED FROM ER NURSE WOO BOSTON
--- NOTE | 2021-09-30 16:22 | NUR ---
Report given to Luis on MS.
--- NOTE | 2021-09-30 16:40 | NUR ---
PT ARRIVED VIA STRETCHER WITH WOO BOSTON. IV 20G RAC. FLUSHED WITH NO RESISTANCE. FALL/SAFETY PRECAUTIONS WITHIN REACH. TELE MONITOR IN PLACE. ASSESSMENT AND VITALS ALLOWED AT THIS TIME. LUNG SOUNDS DIMINISHED UPPER/LOWER LOBES ANTERIOR AND POSTERIOR. HEART SOUNDS ARE REGULAR. TELE MONITOR IN PLACE. BOWEL SOUNDS ACTIVE X4. STATES DISCOMFORT IN ABD AREA. PT A&O X4. FALL/SAFTEY PRECAUTIONS IN PLACE. CALL LIGHT WITHIN REACH
--- NOTE | 2021-09-30 17:02 | NUR ---
PT ARRIVED VIA STRETCHER WITH WOO SAPP. ORIENTATED PT TO ROOM. LUNG SOUNDS ARE CLEAR/DIMINISHED UPPER LOBES ANTERIOR.LOWER LOBES ARE DIMINISHED WITH RONCHI. BOWEL SOUNDS ACTIVE X4. HEART SOUNDS ARE REGULAR. TELE MONITOR IN PLACE. CONTINOUS MONITORING BY ED. SKIN WDI. HX OF SKIN CANCER, HAS GONE THROUGH RADIATION. O2 IN PLACE 1.5L VIA NC. STATING 95%. STATES NO PAIN AT THIS TIME. PT ALSO HAS A PRODUCTIVE COUGH WITH YELLOW SPUTUM. FALL/SAFETY PRECAUTION WITHIN REACH. CALL LIGHT WITHIN REACH. IV 20G LAC, FLUSHED WITH NO RESISTANCE.
[2021-09-30 17:30] VITALS: BP 127/58
--- NOTE | 2021-09-30 19:13 | NUR ---
REPORT RECEIVED FROM Dea BERMEO RN
[2021-09-30 19:30] VITALS: BP 118/56
--- NOTE | 2021-09-30 20:54 | NUR ---
ASSEMENT COMPLATED AT THIS TIME.MEDICATIONS ADMINSTERED PER EMAR.
--- NOTE | 2021-09-30 23:45 | NUR ---
PATIENT UP TO THE RESTROOM AT THIS TIME. AMBULATED WITH STEADY GAIT. CALL LIGHT AND BEDSIDE TABLE REPLACED WITHIN REACH.
[2021-10-01] VITALS: BP 118/74
[2021-10-01 04:00] VITALS: BP 118/66
--- NOTE | 2021-10-01 04:41 | NUR ---
SPUTUM COLLECTED AT THSI TIME. PT UP TO THE RESTROOM WITHOUT ASSITANCE. CALL LIGHT AND BEDSIDE TABLE WITHIN REACH.
[2021-10-01 05:43] LABS: HEMATOCRIT 36.9 % (37.0-47.0); HEMOGLOBIN 11.8 g/dl (12.0-16.0); MEAN CELL VOLUME 95.1 fL CALC (80.0-100.0); MEAN CORPUSCULAR HGB 30.4 pG CALC (26.0-32.0); RED BLOOD COUNT 3.88 mill/uL (4.20-5.60); RED CELL DISTRI WIDTH 13.3 % (11.5-15.5)
[2021-10-01 06:02] LABS: ANION GAP 11 (6-22 (CALC)); BUN 11 mg/dL (8-23); BUN/CREATININE RATIO 17 (12-20 (CALC)); CARBON DIOXIDE 26 mmol/l (22-30); CHLORIDE 102 mmol/l (95-108); CREATININE 0.6 mg/dL (0.5-1.0); GFR > 60 ML/MIN (>=60 (CALC)); GFR FOR AFR.AMER. > 60 ML/MIN (>=60 (CALC)); MAGNESIUM 1.8 mg/dL (1.6-2.3); POTASSIUM 3.8 mmol/l (3.5-5.1); SODIUM 135 mmol/l (137-146)
[2021-10-01 08:35] VITALS: BP 104/50
--- NOTE | 2021-10-01 08:45 | NUR ---
PT SITTING IN BED IN HIGH BRUSH'S POSITION. CLEAR, DIMINISHED LUNG SOUNDS ON RUL,RML & LUP; RHONCHI ON RIGHT AND LEFT LOWER LOBES UPON AUSCULTATION. EVEN AND UNLABORED RESPIRATIONS; O2 @ 2L IN PLACE[address] TELEMETRY IN PLACE. ACTIVE BOWEL SOUNDS X4 QUADRANTS. PT DENIES PAIN AT THE MOMENT. CALL LIGHT WITHIN REACH.
--- NOTE | 2021-10-01 10:46 | NUR ---
AND MARC ANRP AT BEDSIDE DISCUSSING POC.
[2021-10-01 11:05] VITALS: BP 136/63
--- NOTE | 2021-10-01 13:45 | NUR ---
PT SITTING IN BED ACCOMPANIED BY VISITORS. NO DISTRESS NOTED. PT DENIES PAIN AT THE MOMENT. IV SITE HEALTHY AND PATENT. TELEMETRY AND SAFETY PRECAUTIONS IN PLACE. CALL LIGHT WITHIN REACH.
[2021-10-01 16:16] VITALS: BP 136/66
--- NOTE | 2021-10-01 16:47 | NUR ---
PT SLEEPING IN BED. NO DISTRESS NOTED. TELEMETRY IN PLACE. SAFETY PRECAUTIONS IN PLACE. CALL LIGHT WITHIN REACH.
[2021-10-01 19:00] VITALS: BP 123/61
--- NOTE | 2021-10-01 21:05 | NUR ---
ASSEMENT COMPLETED AT THIS TIME. PT REQUESTING COUGH MEDICINE. MESSAGE SENT TO DR. PABLO REQUESTING TISSUES AND BOTTLES WATER, HX OF BARIATRIC SURGERY AND THE STRAW CAUSES DISCOMFORT. PROVIDED WITH BOTH.
[2021-10-02] VITALS (7 sets, daily range): BP systolic 102–137; BP diastolic 52–72
--- NOTE | 2021-10-02 | NUR ---
PATIENT PROVIDED WITH COUGH MEDICINE. ANTIBIOTIC COMPLETED AT THSI TIME
--- NOTE | 2021-10-02 05:30 | NUR ---
PATIENT SLEEPING SOUNDLY, NO APPARENT NEEDS AT THIS TIME, CALL LIGHT WITHTIN REACH.
[2021-10-02 06:08] LABS: HEMATOCRIT 37.5 % (37.0-47.0); HEMOGLOBIN 11.9 g/dl (12.0-16.0); MEAN CELL VOLUME 94.7 fL CALC (80.0-100.0); MEAN CORPUSCULAR HGB 30.1 pG CALC (26.0-32.0); MEAN CORPUSCULAR HGB CONC 31.7 g/dL CAL (32.0-36.0); RED BLOOD COUNT 3.96 mill/uL (4.20-5.60); RED CELL DISTRI WIDTH 13.3 % (11.5-15.5)
[2021-10-02 06:41] LABS: BUN 8 mg/dL (8-23); BUN/CREATININE RATIO 11 (12-20 (CALC)); CHLORIDE 102 mmol/l (95-108); CREATININE 0.7 mg/dL (0.5-1.0); GFR > 60 ML/MIN (>=60 (CALC)); GFR FOR AFR.AMER. > 60 ML/MIN (>=60 (CALC)); POTASSIUM 4.2 mmol/l (3.5-5.1); SODIUM 136 mmol/l (137-146)
[2021-10-02 06:42] LABS: ANION GAP 11 (6-22 (CALC)); CARBON DIOXIDE 27 mmol/l (22-30); MAGNESIUM 1.9 mg/dL (1.6-2.3)
--- NOTE | 2021-10-02 06:45 | NUR ---
REPORT RECEIVED FROM KRISTEN BERKOWITZ. CARE ASSUMED.
--- NOTE | 2021-10-02 07:00 | NUR ---
PATIENT RESTING IN BED AWAKE AND WATCHING TV. PATIENT IS ALERT AND ORIENTED X3. SHIFT ASSESSMENT COMPLETED AT THIS TIME. IV PATENT X1. CALL LIGHT IN REACH. WILL CONTINUE TO MONITOR.
--- NOTE | 2021-10-02 11:30 | NUR ---
PATIENT RESTING IN BED AT THIS TIME. RESP ARE EVEN AND UNLABORED. NO DISTRESS NOTED. CALL LIGHT IN ERACH. WILL CONTINUE TO MONTIOR.
--- NOTE | 2021-10-02 19:00 | NUR ---
RECIEVED REPORT FROM WOO CAI
--- NOTE | 2021-10-02 20:12 | NUR ---
PT RESTING IN SEMI FOWLERS POSITION. PT IS A/OX3. ASSESSMENT COMPLETED. REPSIRATIONS EVEN AND UNLABORED. LUNG SOUNDS CLEAR.PRODUCTIVE COUGH, YELLOW THICK. HEART RHYTHM NORMAL WITH TELE IN PLACE, SR PER ER MONITORING. BOWEL SOUNDS ACTIVE. #22G LH FLUSHED, SITE PATENT. SKIN INTACT. PT DENIES OF ANY PAINS OF DISCOMFORTS AT THIS TIME. ALL SAFTEY PRECAUTIONS ARE IN PLACE WITH CALL LIGHT IN REACH. WILL CONTINUE TO MONITOR.
--- NOTE | 2021-10-02 21:15 | NUR ---
IV ABX RATE SLOWED AT THIS TIME DUE TO PT COMPLAINING OF IV SITE BURNING. NO REDNESS OR EDEMA NOTED. SITE APPEARS PATENT.
[2021-10-03] VITALS: BP 141/63
--- NOTE | 2021-10-03 00:06 | NUR ---
PT RESTING IN SEMI FOWLERS POSITION WATCHING TV. RESPIRATIONS EVEN AND UNLABORED. TELE MONITORING IN PLACE. #22G LH REMAINS IN PLACE. PT DENIES OF ANY PAINS OR DISCOMFORTS. ALL SAFTEY PRECAUTIONS ARE IN PLACE WITH CALL LIGHT IN REACH. WILL CONTINUE TO MONITOR
--- NOTE | 2021-10-03 03:56 | NUR ---
PT SLEEPING IN SEMI FOWLES POSITION. RESPIRATIONS EVEN AND UNLABORED ON ROOM AIR. 2L NC AT BEDSIDE PRN. TELE MONITORING IN PLACE. #22G LH REMAINS IN PLACE. NO SIGNS OF ANY PAINS OR DISCOMFORTS AT THIS TIME. ALL SAFTEY PRECAUTIONS ARE IN PLACE WITH CALL LIGHT IN REACH. WILL CONTINUE TO MONITOR.
[2021-10-03 04:00] VITALS: BP 141/73
[2021-10-03 05:20] LABS: HEMATOCRIT 38.1 % (37.0-47.0); MEAN CELL VOLUME 95.7 fL CALC (80.0-100.0); MEAN CORPUSCULAR HGB 30.2 pG CALC (26.0-32.0); MEAN CORPUSCULAR HGB CONC 31.5 g/dL CAL (32.0-36.0); RED BLOOD COUNT 3.98 mill/uL (4.20-5.60); RED CELL DISTRI WIDTH 13.3 % (11.5-15.5)
[2021-10-03 05:47] LABS: ANION GAP 12 (6-22 (CALC)); BUN 9 mg/dL (8-23); BUN/CREATININE RATIO 14 (12-20 (CALC)); CARBON DIOXIDE 27 mmol/l (22-30); CHLORIDE 104 mmol/l (95-108); CREATININE 0.7 mg/dL (0.5-1.0); GFR > 60 ML/MIN (>=60 (CALC)); GFR FOR AFR.AMER. > 60 ML/MIN (>=60 (CALC)); MAGNESIUM 2.1 mg/dL (1.6-2.3); POTASSIUM 4.2 mmol/l (3.5-5.1); SODIUM 138 mmol/l (137-146)
--- NOTE | 2021-10-03 07:39 | NUR ---
RECEIVE REPORT FROM JEAN BERKOWITZ. PATIENT ALERT AND ORIENTED TIMES III. NO REPORT PAIN OR DISCONFORT AT THIS TIME. EDUCATED ABOUT MEDICATIONS AND NURSING PLAN FOR TODAY. PATIENT REPORT UNDERSTAND.
[2021-10-03 10:33] VITALS: BP 111/56
[2021-10-03] MEDS ORDERED: TESSALON PERLE100 MG PO (11:03)
[2021-10-03] MEDS ORDERED: DOXYCYCLINE100 MG PO (11:05)
[2021-10-03] MEDS ORDERED: MUCINEX600 MG PO (11:06)
--- NOTE | 2021-10-03 12:53 | NUR ---
PATIENT DISCHARGE STABLE. NO REPORT PAIN NO DISTRESS. PATIENT IS EDUCATED ABOUT MEDICATIONS AND FOLLOW UP. RETURNET HOME MEDICATIONS SHE HAVE IN PHARMACY.
== END 2021-10-03 13:27 | disposition home or self-care (01) | DRG 195 ==
LOC: ED 12:37 → MS2 15:00
PROVIDERS: Nurse Practitioner; ADMIT Hospitalist; ATTEND Hospitalist
DX: J18.9 Pneumonia, unspecified organism (principal); J43.9 Emphysema, unspecified; R09.02 Hypoxemia; I10 Essential (primary) hypertension; E78.5 Hyperlipidemia, unspecified; K21.9 Gastro-esophageal reflux disease without esophagitis; E66.01 Morbid (severe) obesity due to excess calories; Z68.36 Body mass index [BMI] 36.0-36.9, adult; Z87.891 Personal history of nicotine dependence; Z87.01 Personal history of pneumonia (recurrent); Z20.822 Contact with and (suspected) exposure to COVID-19
CPT/HCPCS: G0378; J1650; Q9967

== ENCOUNTER 2021-12-22 23:04 | Emergency (ER) | payer MEDICARE, OTHER ==
[~2021-12-22] VITALS: Ht 147.3 cm; Wt 180.0 kg
[~2021-12-22 23:04] MED LIST changes: +BARIATRIC MULTI1 CAP; +CA CIT/VIT1 PO; +DOXYCYCLINE100 MG PO; +FLAXSEED OIL1000 MG PO; +IRON325 M1; +MUCINEX600 MG PO; +TESSALON PERLE100 MG PO
[2021-12-22 23:15] VITALS: BP 128/70
[2021-12-23 00:06] LABS: HEMATOCRIT 43.2 % (37.0-47.0); HEMOGLOBIN 13.8 g/dl (12.0-16.0); IMMATURE GRANULOCYTES 0.1 % (0.0-5.0); MEAN CELL VOLUME 94.7 fL CALC (80.0-100.0); MEAN CORPUSCULAR HGB 30.3 pG CALC (26.0-32.0); MEAN CORPUSCULAR HGB CONC 31.9 g/dL CAL (32.0-36.0); NEUT# 3.6 thou/uL (2.00-7.15); RED BLOOD COUNT 4.56 mill/uL (4.20-5.60); RED CELL DISTRI WIDTH 14.2 % (11.5-15.5)
[2021-12-23 00:32] LABS: ALKALINE PHOSPHATASE 98 u/l (38-126); AMYLASE 84 u/l (30-110); ANION GAP 12 (6-22 (CALC)); BUN 18 mg/dL (8-23); BUN/CREATININE RATIO 28 (12-20 (CALC)); CARBON DIOXIDE 26 mmol/l (22-30); CHLORIDE 104 mmol/l (95-108); CREATININE 0.6 mg/dL (0.5-1.0); ETHYL ALCOHOL 169 mg/dl (0-30); GFR > 60 ML/MIN (>=60 (CALC)); GFR FOR AFR.AMER. > 60 ML/MIN (>=60 (CALC)); LIPASE 106 u/l (23-300); POTASSIUM 3.9 mmol/l (3.5-5.1); SODIUM 138 mmol/l (137-146); TOTAL PROTEIN 6.8 g/dL (6.3-8.2)
[2021-12-23 00:36] LABS: BILIRUBIN, TOTAL 0.4 mg/dL (0.0-1.4); SGOT/AST 41 u/l (9-36)
[2021-12-23 00:42] LABS: MYOGLOBIN 23 ng/mL (0 - 62)
[2021-12-23 01:03] VITALS: BP 128/70
== END 2021-12-23 01:18 | disposition home or self-care (01) ==
LOC: ED 23:04
PROVIDERS: Emergency Medicine
DX: S00.83XA Contusion of other part of head, initial encounter (principal); S00.33XA Contusion of nose, initial encounter; F10.129 Alcohol abuse with intoxication, unspecified; I10 Essential (primary) hypertension; E66.01 Morbid (severe) obesity due to excess calories; W01.0XXA Fall on same level from slipping, tripping and stumbling without subsequent striking against object, initial encounter; Y92.008 Other place in unspecified non-institutional (private) residence as the place of occurrence of the external cause; Z86.16 Personal history of COVID-19

== ENCOUNTER 2022-01-13 21:44 | Emergency (ER) | payer MEDICARE, OTHER ==
[~2022-01-13] VITALS: Ht 147.3 cm; Wt 75.0 kg
[2022-01-13] VITALS (7 sets, daily range): BP systolic 92–112; BP diastolic 49–61
[2022-01-13 22:22] LABS: HEMATOCRIT 39.1 % (37.0-47.0); HEMOGLOBIN 12.3 g/dl (12.0-16.0); IMMATURE GRANULOCYTES 0.1 % (0.0-5.0); MEAN CELL VOLUME 94.7 fL CALC (80.0-100.0); MEAN CORPUSCULAR HGB 29.8 pG CALC (26.0-32.0); MEAN CORPUSCULAR HGB CONC 31.5 g/dL CAL (32.0-36.0); NEUT# 9.7 thou/uL (2.00-7.15); RED BLOOD COUNT 4.13 mill/uL (4.20-5.60); RED CELL DISTRI WIDTH 13.2 % (11.5-15.5)
[2022-01-13 22:38] LABS: ALBUMIN 3.6 g/dL (3.2-5.0); AMYLASE 62 u/l (30-110); ANION GAP 12 (6-22 (CALC)); BILIRUBIN, TOTAL 0.5 mg/dL (0.0-1.4); BUN 18 mg/dL (8-23); BUN/CREATININE RATIO 23 (12-20 (CALC)); CARBON DIOXIDE 24 mmol/l (22-30); CHLORIDE 103 mmol/l (95-108); CREATININE 0.8 mg/dL (0.5-1.0); GFR > 60 ML/MIN (>=60 (CALC)); GFR FOR AFR.AMER. > 60 ML/MIN (>=60 (CALC)); LIPASE 79 u/l (23-300); POTASSIUM 3.7 mmol/l (3.5-5.1); SGOT/AST 50 u/l (9-36); SODIUM 135 mmol/l (137-146)
[2022-01-13 22:49] LABS: MYOGLOBIN 23 ng/mL (0 - 62)
[2022-01-13 22:52] LABS: ACT PARTIAL THROMBO TIME 26.9 SECONDS (20.0-32.5); PROTHROMBIN TIME 10.8 SECONDS (9.0-12.5)
[2022-01-13 23:04] LABS: D-DIMER 1.23 mg/L (0.19-0.60)
[2022-01-13 23:24] LABS: ALKALINE PHOSPHATASE 286 u/l (38-126)
[2022-01-14 00:37] VITALS: BP 100/60
[2022-01-14] MEDS ORDERED: TORADOL PO (00:37)
[2022-01-14] MEDS ORDERED: VIBRAMYCIN100 M2 PO (00:37)
[2022-01-14 01:01] VITALS: BP 117/60
[2022-01-14 01:30] VITALS: BP 110/62
== END 2022-01-14 01:39 | disposition home or self-care (01) ==
LOC: ED 21:44
PROVIDERS: Family Medicine
DX: J18.9 Pneumonia, unspecified organism (principal); I10 Essential (primary) hypertension; E66.01 Morbid (severe) obesity due to excess calories; Z86.16 Personal history of COVID-19; Z20.822 Contact with and (suspected) exposure to COVID-19
CPT/HCPCS: Q9967

== ENCOUNTER 2022-04-27 18:37 | Emergency (ER) | payer MEDICARE, OTHER ==
[~2022-04-27] VITALS: Ht 147.3 cm; Wt 72.0 kg
[~2022-04-27 18:37] MED LIST changes: +TORADOL PO; +VIBRAMYCIN100 M2 PO
[2022-04-27 20:05] LABS: HEMATOCRIT 41.6 % (37.0-47.0); HEMOGLOBIN 13.5 g/dl (12.0-16.0); IMMATURE GRANULOCYTES 0.2 % (0.0-5.0); MEAN CELL VOLUME 91.4 fL CALC (80.0-100.0); MEAN CORPUSCULAR HGB 29.7 pG CALC (26.0-32.0); MEAN CORPUSCULAR HGB CONC 32.5 g/dL CAL (32.0-36.0); NEUT# 3.06 thou/uL (2.00-7.15); RED BLOOD COUNT 4.55 mill/uL (4.20-5.60); RED CELL DISTRI WIDTH 14.3 % (11.5-15.5)
[2022-04-27 20:14] LABS: ALBUMIN 4.1 g/dL (3.2-5.0); ALKALINE PHOSPHATASE 151 u/l (38-126); ANION GAP 14 (6-22 (CALC)); BILIRUBIN, TOTAL 0.7 mg/dL (0.0-1.4); BUN 23 mg/dL (8-23); BUN/CREATININE RATIO 31 (12-20 (CALC)); CARBON DIOXIDE 23 mmol/l (22-30); CHLORIDE 105 mmol/l (95-108); CREATININE 0.7 mg/dL (0.5-1.0); GFR FOR AFR.AMER. > 60 ML/MIN (>=60 (CALC)); GFR OTHER RACES > 60 ML/MIN (>=60 (CALC)); SGOT/AST 46 u/l (9-36); SODIUM 138 mmol/l (137-146); TOTAL PROTEIN 7.2 g/dL (6.3-8.2)
[2022-04-27] MEDS ORDERED: PAXLOVID PO (21:23)
[2022-04-27 22:06] VITALS: BP 138/76
== END 2022-04-27 22:52 | disposition home or self-care (01) ==
LOC: ED 18:37
PROVIDERS: Emergency Medicine
DX: U07.1 COVID-19 (principal); I10 Essential (primary) hypertension; E66.01 Morbid (severe) obesity due to excess calories

== ENCOUNTER 2023-02-23 16:23 | Emergency (ER) | payer MEDICARE, OTHER ==
[~2023-02-23] VITALS: Ht 144.8 cm; Wt 73.0 kg
[2023-02-23] VITALS (8 sets, daily range): BP systolic 94–136; BP diastolic 53–72
[~2023-02-23 16:23] MED LIST changes: +PAXLOVID PO
[2023-02-23 16:54] LABS: BASO% 0.6 % (0-3); EOS% 1.2 % (0-8); HEMATOCRIT 41.8 % (37.0-47.0); HEMOGLOBIN 13.3 g/dl (12.0-16.0); IMMATURE GRANULOCYTES 0.1 % (0.0-5.0); LYMPH% 26.2 % (15-41); MEAN CELL VOLUME 92.7 fL CALC (80.0-100.0); MEAN CORPUSCULAR HGB 29.5 pG CALC (26.0-32.0); MEAN CORPUSCULAR HGB CONC 31.8 g/dL CAL (32.0-36.0); MONO% 8.5 % (2-13); NEUT# 4.23 thou/uL (2.00-7.15); NEUT% 63.4 % (42-76); RED BLOOD COUNT 4.51 mill/uL (4.20-5.60)
[2023-02-23 17:06] LABS: ALBUMIN 3.5 g/dL (3.2-5.0); ALKALINE PHOSPHATASE 103 u/l (38-126); ANION GAP 9 (6-22 (CALC)); BILIRUBIN, TOTAL 1.3 mg/dL (0.02-1.3); BUN 10 mg/dL (8-23); BUN/CREATININE RATIO 14 (12-20 (CALC)); CARBON DIOXIDE 23 mmol/l (22-30); CHLORIDE 105 mmol/l (95-108); CREATININE 0.7 mg/dL (0.5-1.0); GFR FOR AFR.AMER. > 60 ML/MIN (>=60 (CALC)); GFR OTHER RACES > 60 ML/MIN (>=60 (CALC)); POTASSIUM 3.8 mmol/l (3.5-5.1); SGOT/AST 23 u/l (9-36); SODIUM 133 mmol/l (137-146); TOTAL PROTEIN 6.4 g/dL (6.3-8.2)
== END 2023-02-23 20:50 | disposition home or self-care (01) ==
LOC: ED 16:23
PROVIDERS: Family Medicine
DX: B34.9 Viral infection, unspecified (principal); I10 Essential (primary) hypertension; E66.01 Morbid (severe) obesity due to excess calories; Z86.16 Personal history of COVID-19; Z20.822 Contact with and (suspected) exposure to COVID-19

== ENCOUNTER 2024-08-31 07:46 | Inpatient (IN) | payer MEDICARE, OTHER ==
[~2024-08-31] VITALS: Ht 142.2 cm; Wt 85.8 kg
[2024-08-31] VITALS (19 sets, daily range): BP systolic 117–152; BP diastolic 63–85
[~2024-08-31 07:46] MED LIST changes: +ALENDRONATE SOD70 MG PO; +HAIR/SKIN/NAILS1 CAP PO; +METHYLPRED16 MG PO; +OMEGA 31000 MG PO; +PERCOCET 5/321 COMBO PO; +PERCOCET 5/325M1 TAB PO; +PREDNISONE1 MG PO; +ZPAK PO
[2024-08-31] MEDS ORDERED: Levofloxacin 750 mg Premix 150 ML IV ONE (08:10)
[2024-08-31] MEDS ORDERED: SODIUM CHLORIDE 0.9% 1,000 ML BAG IV ONE (08:10)
[2024-08-31] MEDS ORDERED: ALBUTEROL SULFATE 2.5 MG VIAL NEB ONE (08:15)
[2024-08-31] MEDS ORDERED: ACETAMINOPHEN 325 MG/TAB PO ONE (08:15)
[2024-08-31] MEDS ORDERED: methylPREDNISolone SODIUM SUCC 125 MG/2 ML SDV IV ONE (08:15)
[2024-08-31 08:37] LABS: BASO% 0.5 % (0-3); EOS% 0.1 % (0-8); HEMATOCRIT 40.6 % (37.0-47.0); HEMOGLOBIN 13.6 g/dl (12.0-16.0); IMMATURE GRANULOCYTES 0.1 % (0.0-5.0); LYMPH% 14.3 % (15-41); MEAN CELL VOLUME 92.1 fL CALC (80.0-100.0); MEAN CORPUSCULAR HGB 30.8 pG CALC (26.0-32.0); MEAN CORPUSCULAR HGB CONC 33.5 g/dL CAL (32.0-36.0); MONO% 6.9 % (2-13); NEUT# 5.74 thou/uL (2.00-7.15); NEUT% 78.1 % (42-76); RED BLOOD COUNT 4.41 mill/uL (4.20-5.60); RED CELL DISTRI WIDTH 12.6 % (11.5-15.5)
[2024-08-31 08:41] LABS: ALBUMIN 3.8 g/dL (3.2-5.0); BILIRUBIN, TOTAL 1.6 mg/dL (0.02-1.3); CREATININE 0.8 mg/dL (0.5-1.0); TOTAL PROTEIN 6.4 g/dL (6.3-8.2)
[2024-08-31] MEDS ORDERED: OSELTAMIVIR PHOSPHATE 75 MG/TAB CAP PO ONE (09:05)
[2024-08-31] MEDS ORDERED: IRON325 M1 PO (11:00)
[2024-08-31] MEDS ORDERED: ACETAMINOPHEN 325 MG/TAB PO PRN (13:00)
[2024-08-31] MEDS ORDERED: IPRATROPIUM-Albuterol 0.5MG-2.5MG/3 ML NEB PRN (13:00)
[2024-08-31] MEDS ORDERED: MAGNESIUM HYDROXIDE 30 ML UDC PO PRN (13:00)
[2024-08-31] MEDS ORDERED: OSELTAMIVIR PHOSPHATE 75 MG/TAB CAP PO SCH (21:00)
[2024-08-31] MEDS ORDERED: methylPREDNISolone Sod Succ 40 MG/ML SDV IV SCH (21:00)
[2024-08-31] MEDS ORDERED: ENOXAPARIN SODIUM 40 MG/0.4 ML SYR SC SCH (21:00)
[2024-09-01] VITALS (8 sets, daily range): BP systolic 140–168; BP diastolic 72–86
[2024-09-01 05:56] LABS: BASO% 0.2 % (0-3); HEMATOCRIT 39.9 % (37.0-47.0); HEMOGLOBIN 13.6 g/dl (12.0-16.0); IMMATURE GRANULOCYTES 0.2 % (0.0-5.0); LYMPH% 12.9 % (15-41); MEAN CELL VOLUME 91.5 fL CALC (80.0-100.0); MEAN CORPUSCULAR HGB 31.2 pG CALC (26.0-32.0); MEAN CORPUSCULAR HGB CONC 34.1 g/dL CAL (32.0-36.0); MONO% 3.7 % (2-13); NEUT# 4.31 thou/uL (2.00-7.15); RED BLOOD COUNT 4.36 mill/uL (4.20-5.60); RED CELL DISTRI WIDTH 12.4 % (11.5-15.5)
[2024-09-01 06:16] LABS: ALBUMIN 3.7 g/dL (3.2-5.0); CREATININE 0.7 mg/dL (0.5-1.0); MAGNESIUM 2.4 mg/dL (1.6-2.3); TOTAL PROTEIN 6.3 g/dL (6.3-8.2)
[2024-09-01 06:18] LABS: BILIRUBIN, TOTAL 0.9 mg/dL (0.02-1.3)
[2024-09-01] MEDS ORDERED: Levofloxacin 750 mg Premix 150 ML IV SCH (09:00)
[2024-09-01] MEDS ORDERED: PANTOPRAZOLE SODIUM Sesquihydr 40 MG/TAB PO SCH (09:00)
[2024-09-01] MEDS ORDERED: LOSARTAN Potassium 50 MG/TAB PO SCH (09:00)
[2024-09-01] MEDS ORDERED: FERROUS SULFATE 325 MG/TAB PO SCH (09:00)
[2024-09-01] MEDS ORDERED: traMADol HCL 50 MG/TAB PO PRN (21:20)
[2024-09-01] MEDS ORDERED: FLUTICASONE PROPIONATE (Nasal) 50MCG/SPRAY INH SCH ×2 (23:00→23:06)
[2024-09-01] MEDS ORDERED: ALBUTEROL SULFATE 8 GM INH IN PRN (23:10)
[2024-09-02] VITALS (8 sets, daily range): BP systolic 145–171; BP diastolic 67–94
[2024-09-02 06:23] LABS: BASO% 0.1 % (0-3); HEMATOCRIT 42.1 % (37.0-47.0); IMMATURE GRANULOCYTES 0.5 % (0.0-5.0); LYMPH% 7.2 % (15-41); MEAN CELL VOLUME 94.6 fL CALC (80.0-100.0); MEAN CORPUSCULAR HGB 31.5 pG CALC (26.0-32.0); MEAN CORPUSCULAR HGB CONC 33.3 g/dL CAL (32.0-36.0); MONO% 3.8 % (2-13); NEUT# 8.9 thou/uL (2.00-7.15); NEUT% 88.4 % (42-76); RED BLOOD COUNT 4.45 mill/uL (4.20-5.60); RED CELL DISTRI WIDTH 12.6 % (11.5-15.5)
[2024-09-02 06:34] LABS: ALBUMIN 3.6 g/dL (3.2-5.0); BILIRUBIN, TOTAL 0.8 mg/dL (0.02-1.3); CREATININE 0.8 mg/dL (0.5-1.0); MAGNESIUM 2.3 mg/dL (1.6-2.3); POTASSIUM 4.4 mmol/l (3.5-5.1); TOTAL PROTEIN 6.2 g/dL (6.3-8.2)
[2024-09-02] MEDS ORDERED: LEVALBUTEROL HCL 1.25 MG/3 ML VIAL NEB PRN (08:15)
[2024-09-02] MEDS ORDERED: FLUTICASONE PROPIONATE (Nasal) 50MCG/SPRAY INH SCH ×2 (09:00)
[2024-09-03 00:06] VITALS: BP 157/85
[2024-09-03 04:00] VITALS: BP 147/92
[2024-09-03 05:51] LABS: BASO% 0.1 % (0-3); HEMATOCRIT 41.7 % (37.0-47.0); HEMOGLOBIN 13.9 g/dl (12.0-16.0); IMMATURE GRANULOCYTES 2.3 % (0.0-5.0); MEAN CELL VOLUME 93.7 fL CALC (80.0-100.0); MEAN CORPUSCULAR HGB 31.2 pG CALC (26.0-32.0); MEAN CORPUSCULAR HGB CONC 33.3 g/dL CAL (32.0-36.0); MONO% 4.8 % (2-13); NEUT# 5.69 thou/uL (2.00-7.15); NEUT% 76.1 % (42-76); RED BLOOD COUNT 4.45 mill/uL (4.20-5.60); RED CELL DISTRI WIDTH 12.6 % (11.5-15.5)
[2024-09-03 06:00] LABS: ALBUMIN 3.5 g/dL (3.2-5.0); BILIRUBIN, TOTAL 0.8 mg/dL (0.02-1.3); CREATININE 0.8 mg/dL (0.5-1.0); MAGNESIUM 2.3 mg/dL (1.6-2.3); POTASSIUM 4.7 mmol/l (3.5-5.1); TOTAL PROTEIN 6.2 g/dL (6.3-8.2)
[2024-09-03 06:11] LABS: LYMPH% 16.7 % (15-41)
[2024-09-03 07:18] VITALS: BP 159/91
[2024-09-03] MEDS ORDERED: TAM75CAP PO (09:55)
[2024-09-03] MEDS ORDERED: LEVOFLOXACIN500MG PO (09:57)
[2024-09-03] MEDS ORDERED: PREDNISONE10 MG PO (09:59)
[2024-09-03 11:21] VITALS: BP 178/79
== END 2024-09-03 19:10 | disposition home or self-care (01) | DRG 193 ==
LOC: ED 07:46 → ED-I 10:12 → ED 10:29 → MS2 10:30
PROVIDERS: Emergency Medicine; Nurse Practitioner Family; ADMIT Internal Medicine; ATTEND Internal Medicine
DX: J10.1 Influenza due to other identified influenza virus with other respiratory manifestations (principal); J96.01 Acute respiratory failure with hypoxia; J44.1 Chronic obstructive pulmonary disease with (acute) exacerbation; I10 Essential (primary) hypertension; E78.5 Hyperlipidemia, unspecified; E66.01 Morbid (severe) obesity due to excess calories; K21.9 Gastro-esophageal reflux disease without esophagitis; Z98.84 Bariatric surgery status; Z87.891 Personal history of nicotine dependence; Z87.01 Personal history of pneumonia (recurrent); Z20.822 Contact with and (suspected) exposure to COVID-19
CPT/HCPCS: J1650

== ENCOUNTER 2024-10-09 13:03 | Emergency (ER) | payer MEDICARE, OTHER ==
[~2024-10-09] VITALS: Ht 142.2 cm; Wt 95.0 kg
[2024-10-09] VITALS (13 sets, daily range): BP systolic 147–175; BP diastolic 78–121
[~2024-10-09 13:03] MED LIST changes: +IRON325 M1 PO; +LEVOFLOXACIN500MG PO; +TAM75CAP PO
[2024-10-09] MEDS ORDERED: SODIUM CHLORIDE 0.9% 1,000 ML IV ONE (13:30)
[2024-10-09 14:03] LABS: BASO% 0.6 % (0-3); EOS% 1.3 % (0-8); HEMATOCRIT 45.5 % (37.0-47.0); HEMOGLOBIN 14.4 g/dl (12.0-16.0); IMMATURE GRANULOCYTES 0.1 % (0.0-5.0); LYMPH% 37.7 % (15-41); MEAN CORPUSCULAR HGB 30.4 pG CALC (26.0-32.0); MEAN CORPUSCULAR HGB CONC 31.6 g/dL CAL (32.0-36.0); MONO% 6.8 % (2-13); NEUT# 4.16 thou/uL (2.00-7.15); NEUT% 53.5 % (42-76); RED BLOOD COUNT 4.74 mill/uL (4.20-5.60); RED CELL DISTRI WIDTH 13.7 % (11.5-15.5)
[2024-10-09 14:14] LABS: ALBUMIN 4.3 g/dL (3.2-5.0); ALKALINE PHOSPHATASE 82 u/l (38-126); AMYLASE 74 u/l (30-110); ANION GAP 11 (6-22 (CALC)); BILIRUBIN, TOTAL 1.2 mg/dL (0.02-1.3); BUN 16 mg/dL (8-23); BUN/CREATININE RATIO 21 (12-20 (CALC)); CARBON DIOXIDE 27 mmol/l (22-30); CHLORIDE 107 mmol/l (95-108); CREATININE 0.8 mg/dL (0.5-1.0); ESTIMATED GFR 77 ML/MIN (>=90 (CALC)); SGOT/AST 30 u/l (9-36); SODIUM 141 mmol/l (137-146); TOTAL PROTEIN 7.1 g/dL (6.3-8.2)
[2024-10-09] MEDS ORDERED: ALUM & MAG HYDROX-SIMETHICONE 30 ML PO ONE (14:40)
[2024-10-09] MEDS ORDERED: LIDOCAINE VISCOUS 2% 15 ML UDC PO ONE (14:45)
[2024-10-09] MEDS ORDERED: PROTONIX40 MG PO (15:35)
== END 2024-10-09 15:54 | disposition home or self-care (01) ==
LOC: ED 13:03
PROVIDERS: Clinical Nurse Specialist Emergency
DX: R07.81 Pleurodynia (principal); K21.9 Gastro-esophageal reflux disease without esophagitis; I10 Essential (primary) hypertension; J44.89 Other specified chronic obstructive pulmonary disease